=== PATIENT | male | born 1985 | race African-American/Black ===

== ENCOUNTER 2023-12-02 18:35 | Inpatient (IN) | payer OTHER ==
[2023-12-02 20:02] VITALS: BMI 26.9
[2023-12-02] MEDS ORDERED: IBUPROFEN 400 MG TABLET (FP) PO PRN (21:14)
[2023-12-02] MEDS ORDERED: IBUPROFEN 600 MG TABLET (FP) PO PRN (21:14)
[2023-12-02] MEDS ORDERED: MAGNESIUM HYDROX 2400MG/30ML ORAL SUSPENSION 30 ML CUP PO PRN (21:14)
[2023-12-02] MEDS ORDERED: BENZONATATE 200 MG CAPSULE PO PRN (21:14)
[2023-12-02] MEDS ORDERED: MAG HYDROX/AL HYDROX/SIMETH 30 ML UNIT-DOSE CUP PO PRN (21:14)
[2023-12-02] MEDS ORDERED: BISMUTH SUBSALICYLATE 524 MG/30 ML PO PRN (21:14)
[2023-12-02] MEDS ORDERED: DICYCLOMINE HCL 10 MG CAPSULE PO PRN (21:14)
[2023-12-02] MEDS ORDERED: NICOTINE POLACRILEX 2 MG GUM BUC PRN (21:14)
[2023-12-02] MEDS ORDERED: LOPERAMIDE HCL 2 MG CAPSULE PO PRN (21:14)
[2023-12-02] MEDS ORDERED: ONDANSETRON *ODT* 4 MG TABLET SL PRN (21:14)
[2023-12-02] MEDS ORDERED: ACETAMINOPHEN 325 MG TABLET (FP) PO PRN (21:14)
[2023-12-02] MEDS ORDERED: BENZOCAINE/MENTHOL (CHLORASEPTIC ) LOZENGE MM PRN (21:14)
[2023-12-02] MEDS ORDERED: guaiFENesin 600 MG TABLET.ER (FP) PO PRN (21:14)
[2023-12-02] MEDS ORDERED: NALOXONE HCL 0.4 MG/ML VIAL IM PRN (21:14)
[2023-12-02] MEDS ORDERED: POLYETHYLENE GLYCOL (HEALTHYLAX) 3350 17 GM PACKET PO PRN (21:14)
[2023-12-02] MEDS ORDERED: NALOXONE (NARCAN) HCL 4 MG/0.1 ML SPRAY NS PRN (21:14)
[2023-12-02] MEDS: MELATONIN 5 MG TABLETS PO SCH (23:06)
[2023-12-02] MEDS: THIAMINE 100 MG TABLET PO SCH (23:07)
[2023-12-02] MEDS: METHOCARBAMOL 500 MG TABLET PO PRN (23:07)
[2023-12-03] MEDS: PRENATAL VITAMINS W/ FOLIC ACID TABLET (FP) PO SCH (10:28)
[2023-12-03] MEDS: NICOTINE 21 MG/24 HOURS TOPICAL PATCH TD SCH (10:29)
[2023-12-03] MEDS ORDERED: ALBUTEROL SO4 HFA INHALER IH PRN (10:31)
[2023-12-03] MEDS: levETIRAcetam XR 750 MG TAB PO SCH (11:17)
[2023-12-03] MEDS: QUEtiapine FUMARATE 100 MG TABLET (FP) PO SCH (22:49)
[2023-12-03] MEDS: MONTELUKAST NA 10 MG TABLET PO SCH (22:49)
[2023-12-03] MEDS: DIVALPROEX SODIUM 500 MG TABLET E.C. PO SCH (22:49)
[2023-12-03] MEDS: BENZTROPINE MESYLATE 1 MG TABLET PO SCH (22:49)
[2023-12-03] MEDS: hydrOXYzine PAMOATE 25 MG CAPSULE (FP) PO PRN (22:50)
[2023-12-04] MEDS: SERTRALINE HCL 50 MG TABLET (FP) PO SCH (10:35)
[2023-12-04 11:11] VITALS: BP 116/70; PULSE 84; RESP 18; TEMP 97.6
== END 2023-12-04 12:20 | disposition home or self-care (01) | DRG 897 ==
LOC: YASAS 18:35 → Y6N 21:17
PROVIDERS: ADMIT Allergy & Immunology; ATTEND Surgery
PROC: HZ2ZZZZ Detoxification Services for Substance Abuse Treatment (ICD-10-PCS; principal; 2023-12-02)
DX: F10.20 Alcohol dependence, uncomplicated (principal); F12.10 Cannabis abuse, uncomplicated; F17.210 Nicotine dependence, cigarettes, uncomplicated; F31.9 Bipolar disorder, unspecified; F43.10 Post-traumatic stress disorder, unspecified; J43.9 Emphysema, unspecified; J45.909 Unspecified asthma, uncomplicated
CPT/HCPCS: 80305; 93005; 93010